=== PATIENT | male | born 1955 | race Caucasian/White ===

== ENCOUNTER 2017-12-22 16:44 | Emergency (ER) | payer MEDICARE, OTHER ==
[2017-12-22] MEDS ORDERED: HYDROmorphone 1 MG/ML Syringe IVPUSH ONE ×2 (17:04→20:22)
--- NOTE | 2017-12-22 17:09 | EDM.PDOC ---
ED HPI GENERAL MEDICAL PROBLEM - General Chief Complaint: General Stated Complaint: pain Time Seen by Provider: 12/22/17 16:53 Source of Information: Reports: Patient History Limitations: Reports: Altered Mental Status - History of Present Illness INITIAL COMMENTS - FREE TEXT/NARRATIVE: Patient is brought into the emergency department via EMS after they were contacted by the patient's neighbor after finding him on the floor for approximately 4-5 hours roughly. Patient states he had slid to the floor and was unable to get up due to the pain. Patient has spinal cancer and is undergoing chemotherapy and radiation. He just finished his radiation treatment and has approval to start a chemotherapy agent he was hoping to start that this weekend. however he has been having increase of fluid retention in his lower extremities. His provider had requested him to come into the clinic yesterday or Sunday to be evaluated prior to surgery and chemotherapy medication. Patient states he is in severe pain in his back but denies falling on it he relates the pain to his cancer. He does have pressure khan on both knees and bilateral hands from where he had been laying. Patient has also urinated himself. States his pain level is a 10 out of 10. Patient denies any other pain or discomfort other than his chronic back pain related to his cancer. Pt was advised to go to the ER yesterday but he told his PCP he would come today and be evaluated for his swollen legs however he sustained a fall and needed to call the ambulance. He has been at home taking care of himself up until today. His was also helping take care of him however she sustained a fall recently and broke her ribs resulted in a collapsed lung. She is now currently in assisted living/ fpc in [place]. Patient has been on his own ever since. His neighbor has been checking up on him intermittently. Onset: Sudden Back Pain Score (Numeric/FACES): 9 - Related Data Allergies Allergy/AdvReac Type Severity Reaction Status Date / Time No Known Allergies Allergy Verified 12/22/17 17:02 Past Medical History Oncologic (Cancer) History: Reports: Liver (with mets to the spine) ED ROS GENERAL - Review of Systems Review Of Systems: See Below Constitutional: Reports: Malaise, Weakness, Fatigue, Decreased Appetite HEENT: Reports: No Symptoms Respiratory: Reports: No Symptoms Cardiovascular: Reports: No Symptoms GI/Abdominal: Reports: Distension, Hematemesis, Nausea Musculoskeletal: Reports: No Symptoms Skin: Reports: Pallor Neurological: Reports: Dizziness, Difficulty Walking, Weakness, Gait Disturbance Psychiatric: Reports: No Symptoms Hematologic/Lymphatic: Reports: No Symptoms Immunologic: Reports: No Symptoms ED EXAM, GENERAL - Physical Exam Exam: See Below Exam Limited By: No Limitations General Appearance: Alert, WD/WN, Mild Distress (severe pain ) Respiratory/Chest: No Respiratory Distress, Lungs Clear Peripheral Pulses: 1+: Dorsalis Pedis (L), Dorsalis Pedis (R) GI/Abdominal: Distended, Abnormal Bowel Sounds Back Exam: Muscle Spasm, Vertebral Tenderness Extremities: Normal Inspection, Leg Pain (edematous ), Limited Range of Motion Neurological: Disoriented (at times ), Memory Loss Recent Events, Abnormal Gait. No: Normal Gait Skin Exam: Warm, No Rash, Pallor, Other (redness both knees and both palms. no blistering or skin peeling) EKG INTERPRETATION Rhythm: Other (sinus bradycardia) Course - Vital Signs Last Recorded V/S: Last Vital Signs Temp 37.8 C 12/22/17 16:53 Pulse 108 H 12/22/17 16:53 Resp 15 12/22/17 16:53 BP 122/54 L 12/22/17 16:53 Pulse Ox 89 L 12/22/17 16:53 - Orders/Labs/Meds Orders: Active Orders 24 hr Category Date Time Status [facility] [REF] Stat Lab 12/22/17 17:15 Received Labs: Laboratory Tests 12/22/17 12/22/17 Range/Units 17:15 17:15 WBC 12.0 H (4.0-10.0) x10^3/uL RBC 3.49 L (4.5-6.0) x10^6/uL Hgb 11.4 L (14.0-18.0) g/dL Hct 33.2 L (40.0-52.0) % MCV 95.1 H (78.0-93.0) fL MCH 32.7 H (26.0-32.0) pg MCHC 34.3 (32.0-36.0) g/dL RDW Coeff of Alexey 15.4 H (10.0-15.0) % Plt Count 87 L (130-400) x10^3/uL Add Manual Diff Yes Neutrophils % (Manual) 88 H (50-80) % Band Neutrophils % 9 H (0-6) % Lymphocytes % (Manual) 3 L (25-50) % Platelet Estimate Adequate Sodium 133 L (136-145) mmol/L Potassium 4.0 (3.5-5.1) mmol/L Chloride 99 (98-107) mmol/L Carbon Dioxide 27 (21-32) mmol/L BUN 20 H (7-18) mg/dL Creatinine 0.9 (0.70-1.30) mg/dL Est Cr Clr Drug Dosing 75.54 mL/min Estimated GFR (MDRD) > 60 Glucose 135 H (74-106) mg/dL Calcium 8.0 L (8.5-10.1) mg/dL Corrected Calcium 9.52 (8.5-10.1) mg/dL Total Bilirubin 3.8 H (0.2-1.0) mg/dL AST 113 H (15-37) U/L ALT 125 H (16-63) U/L Alkaline Phosphatase 249 H (46-116) U/L Creatine Kinase 351 H* (39-308) U/L NT-Pro-B Natriuret Pep 1263 H (<=125) pg/mL Total Protein 5.9 L (6.4-8.2) g/dL Albumin 2.1 L (3.4-5.0) g/dL Globulin 3.8 Albumin/Globulin Ratio 0.55 Meds: Medications Discontinued Medications Generic Name Dose Route Start Last Admin Trade Name Freq PRN Reason Stop Dose Admin Hydromorphone HCl 1 mg 12/22/17 17:04 12/22/17 17:52 Dilaudid IVPUSH 12/22/17 17:05 1 mg ONETIME ONE Administration Departure - Departure Time of Disposition: 18:45 Disposition: DC/Tfer to Acute Hospital 02 Condition: Good Clinical Impression: Fluid retention in legs, Cancer related pain Liver failure Qualifiers: Liver failure chronicity: unspecified chronicity Hepatic coma status: without hepatic coma Qualified Code(s): K72.90 - Hepatic failure, unspecified without coma - Discharge Information Referrals: PCP,Not In Area [Primary Care Provider] - Forms: ED Department Discharge, Interfacility Transfer EMTALA - Problem List Review Problem List Initiated/Reviewed/Updated: Yes - My Orders Last 24 Hours: My Active Orders 12/22/17 17:15 [facility] [REF] Stat - Assessment/Plan Last 24 Hours: My Active Orders 12/22/17 17:15 [facility] [REF] Stat Plan: 1. IV pain medications given 2. Continue IV fluids and her pain 3. Labs completed and reviewed with the patient in the ER 4. Pain medications were provided to the patient5. Consultation with [facility] after receiving labs from the patient. Patient currently is at full code and is actively receiving treatment. He is to see his oncologist within 3 days his appointment as scheduled or ready. He is also supposed to start an oral chemotherapy agent however his doctor advised him yesterday not to start it because of his lower extremities swelling. He was advised to come in yesterday however he did. He came in today after sustaining a fall and laying on the floor for greater than [address] Arellano at [facility] has been gracious enough to assume care of the patient. It sounds according to Dr. Arellano that this patient has had the discussion regarding hospice care. Right now the patient is not ready for that.
[2017-12-22 17:53] LABS: CHLORIDE,CL 99 mmol/L (98-107); SODIUM,NA 133 mmol/L (136-145)
[2017-12-22] MEDS ORDERED: HYDROmorphone 1 MG/ML Syringe ONE (19:03)
[2017-12-22 20:05] VITALS: BP 112/57
== END 2017-12-22 19:45 | disposition short-term general hospital (02) ==
LOC: VM.ED 16:44
DX: G89.3 Neoplasm related pain (acute) (chronic) (principal); C79.51 Secondary malignant neoplasm of bone; M54.9 Dorsalgia, unspecified; R60.0 Localized edema; K72.90 Hepatic failure, unspecified without coma; C22.8 Malignant neoplasm of liver, primary, unspecified as to type
CPT/HCPCS: 80053; 82550; 82553; 83880; 85025; 94760; 96374; 96376; 99285; J1170